=== PATIENT | female | born 1960 | race Caucasian/White ===

== ENCOUNTER 2017-10-05 19:29 | Emergency (ER) | payer MEDICARE, MEDICAID ==
--- NOTE | 2017-10-05 20:09 | ER Document Report ---
ED Extremity Problem, Lower - General Chief Complaint: Leg Swelling Stated Complaint: RIGHT KNEE PAIN Time Seen by Provider: 10/05/17 19:39 Notes: The patient is a 56-year-old female, past medical history CKD, bipolar, history of infected right knee prosthesis, presents with mild increased swelling of her right leg. She said that this occurred when she was in kidney failure last time. Patient had a washout of her right knee about 3 weeks ago at an outside hospital. She is receiving IV antibiotics through her PICC line at [facility]. Patient denies redness from the wound, increased knee pain, fevers, calf pain, chest pain, shortness of breath, nausea or vomiting. - Related Data Allergies/Adverse Reactions: Sulfa (Sulfonamide Antibiotics) Allergy (Verified 10/05/17 20:12) Past Medical History - General Information source: Patient - Social History Smoking Status: Unknown if Ever Smoked Family History: Reviewed & Not Pertinent Review of Systems - Review of Systems Notes: REVIEW OF SYSTEMS: CONSTITUTIONAL: -fevers, -chills EENT: -eye pain, -difficulty swallowing, -nasal congestion CARDIOVASCULAR: -chest pain, -syncope. RESPIRATORY: -cough, -SOB GASTROINTESTINAL: -abdominal pain, -nausea, -vomiting, -diarrhea GENITOURINARY: -dysuria, -hematuria MUSCULOSKELETAL: +right knee pain, -back pain, -neck pain SKIN: -rash or skin lesions. HEMATOLOGIC: -easy bruising or bleeding. LYMPHATIC: -swollen, enlarged glands. NEUROLOGICAL: -altered mental status or loss of consciousness, -headache, - neurologic symptoms PSYCHIATRIC: -anxiety, -depression. ALL OTHER SYSTEMS REVIEWED AND NEGATIVE. Physical Exam - Vital signs Vitals: Temp Pulse Resp BP Pulse Ox 98.4 F 84 18 105/56 L 95 10/05/17 19:57 10/05/17 19:57 10/05/17 19:57 10/05/17 19:57 10/05/17 19:57 - Notes Notes: PHYSICAL EXAMINATION: GENERAL: Well-appearing, well-nourished and in no acute distress. HEAD: Atraumatic, normocephalic. EYES: Pupils equal round and reactive to light, extraocular movements intact, sclera anicteric, conjunctiva are normal. ENT: nares patent, oropharynx clear without exudates. Moist mucous membranes. NECK: Normal range of motion, supple without lymphadenopathy LUNGS: Breath sounds clear to auscultation bilaterally and equal. No wheezes rales or rhonchi. HEART: Regular rate and rhythm without murmurs ABDOMEN: Soft, nontender, normoactive bowel sounds. No guarding, no rebound. No masses appreciated. EXTREMITIES: Well-healing right anterior knee surgical wound without erythema or discharge. Normal range of motion, no pitting or edema. No cyanosis. NEUROLOGICAL: Cranial nerves grossly intact. Normal speech, normal gait. Normal sensory and motor exams. PSYCH: Normal mood, normal affect. SKIN: Warm, Dry, normal turgor, no rashes or lesions noted. Course - Re-evaluation Re-evalutation: Patient's knee appears to be healing well and there are no signs of infection at this time. No redness, swelling, fevers and her white count improved from her admission based on outside hospital paperwork. She is continued to receive IV antibiotics through her PICC line at [facility]. Her kidney function is at baseline. No emergent process identified at this time. DVT is unlikely at this time and vascular ultrasound unable to be performed at this time of the night. She is already on Xarelto. She will follow-up with her primary care physician and surgeon for further evaluation and treatment. Given strict return precautions and she understands. - Vital Signs Vital signs: Temp Pulse Resp BP Pulse Ox 98.4 F 84 18 105/56 L 95 10/05/17 21:55 10/05/17 21:55 10/05/17 21:55 10/05/17 21:55 10/05/17 21:55 - Laboratory Result Diagrams: 10/05/17 20:00 10/05/17 20:00 Laboratory results interpreted by me: 10/05/17 10/05/17 20:00 20:00 WBC 10.7 H RBC 3.46 L Hgb 10.4 L Hct 30.8 L RDW 16.4 H BUN 37 H Creatinine 2.05 H Est GFR ( Amer) 30 L Est GFR (Non-Af Amer) 25 L Glucose 151 H AST 212 H ALT 114 H - Diagnostic Test Radiology reviewed: Image reviewed, Reports reviewed Radiology results interpreted by me: Right knee x-ray: NAD Discharge - Discharge Clinical Impression: Right leg pain Condition: Stable Disposition: HOME, SELF-CARE Additional Instructions: Your knee appears to be healing well. Continue the IV antibiotics as prescribed. Follow-up with your physicians for further evaluation and treatment. Referrals: TOMSA WORRELL MD [ACTIVE STAFF] - Follow up as needed
[2017-10-05 20:10] LABS: ABSOLUTE BASOPHILS # (AUTO) 0.2 10^3/uL (0.0-0.2); ABSOLUTE EOSINOPHILS # (AUTO) 0.5 10^3/uL (0.0-0.6); ABSOLUTE LYMPHOCYTES (AUTO) 2.3 10^3/uL (0.5-4.7); ABSOLUTE MONOCYTES (AUTO) 0.6 10^3/uL (0.1-1.4); ABSOLUTE NEUT (AUTO) 7.1 10^3/uL (1.7-8.2); BASOPHILS % (AUTO) 1.7 % (0-2); EOSINOPHILS % (AUTO) 5.1 % (0-6); HEMATOCRIT 30.8 % (36.0-47.0); HEMOGLOBIN 10.4 g/dL (12.0-15.5); LYMPHOCYTES % (AUTO) 21.3 % (13-45); MEAN CORPUSCULAR HEMOGLOBIN 29.9 pg (27.0-33.4); MEAN CORPUSCULAR HGB CONC 33.6 g/dL (32.0-36.0); MEAN CORPUSCULAR VOLUME 89 fl (80-97); MONOCYTES % (AUTO) 5.4 % (3-13); PLATELET COUNT 367 10^3/uL (150-450); RED BLOOD COUNT 3.46 10^6/uL (3.72-5.28); RED CELL DISTRIBUTION WIDTH 16.4 % (11.5-14.0); SEGMENTED NEUTROPHILS % (AUTO) 66.5 % (42-78); TOTAL CELLS COUNTED % (AUTO) 100 %; WHITE BLOOD COUNT 10.7 10^3/uL (4.0-10.5)
[2017-10-05 20:24] LABS: ALANINE AMINOTRANSFERASE 114 U/L (9-52); ALBUMIN 3.8 g/dL (3.5-5.0); ALKALINE PHOSPHATASE 76 U/L (38-126); ANION GAP 12 (5-19); ASPARTATE AMINO TRANSFERASE 212 U/L (14-36); BILIRUBIN,DIRECT 0.4 mg/dL (0.0-0.4); BILIRUBIN,TOTAL 0.4 mg/dL (0.2-1.3); BLOOD UREA NITROGEN 37 mg/dL (7-20); CALCIUM 9.5 mg/dL (8.4-10.2); CARBON DIOXIDE 24 mmol/L (22-30); CHLORIDE 105 mmol/L (98-107); GLUCOSE 151 mg/dL (75-110); POTASSIUM 3.9 mmol/L (3.6-5.0); SODIUM 140.7 mmol/L (137-145); TOTAL PROTEIN 6.7 g/dL (6.3-8.2)
--- NOTE | 2017-10-05 20:48 | RADIOLOGY REPORT (SQ) ---
EXAM DESCRIPTION: KNEE RIGHT 4 VIEWS COMPLETED DATE/TIME: 10/05/2017 8:12 pm REASON FOR STUDY: right knee swelling COMPARISON: None. NUMBER OF VIEWS: Four views. TECHNIQUE: AP, lateral, and both oblique radiographic images acquired of the right knee. LIMITATIONS: None. FINDINGS: MINERALIZATION: Normal. BONES: Intact knee arthroplasty. JOINT: No effusion. SOFT TISSUES: No soft tissue swelling. No radio-opaque foreign body. OTHER: No other significant finding. IMPRESSION: No acute findings. TECHNICAL DOCUMENTATION: JOB ID: [id number] [employer]- All Rights Reserved
[2017-10-06 00:29] VITALS: BP 111/67
== END 2017-10-06 00:28 | disposition home or self-care (01) ==
LOC: ER 19:29
DX: M79.604 Pain in right leg (principal); M79.89 Other specified soft tissue disorders; M25.561 Pain in right knee; N18.9 Chronic kidney disease, unspecified; F31.9 Bipolar disorder, unspecified; Z79.01 Long term (current) use of anticoagulants; Z98.890 Other specified postprocedural states
CPT/HCPCS: 36415; 80053; 85025; 99284

== ENCOUNTER 2018-11-19 08:14 | Day surgery (SDC) | payer MEDICARE, MEDICAID ==
[~2018-11-19 08:14] MED LIST: PROPOFOL INJ 200 MG/20 ML VIAL IV ONE
[2018-11-19] MEDS ORDERED: ALBUTEROL SULFATE 0.083% NEB 2.5 MG/3 ML AMPUL NEB ONE (08:59)
[2018-11-19 11:17] VITALS: BP 142/68
--- NOTE | 2018-11-19 12:27 | Operative Report ---
Operative Report DATE OF SURGERY: 11/19/18 Operative Report: The risks benefits and alternatives of the procedure explained to the patient in detail and informed consent is obtained.A GIF Olympus video scope was inserted into the patient's mouth and hypopharynx, the esophagus is identified intubated and insufflated ,the scope was then advanced through the esophagus stomach and duodenum, retroflexion maneuver is done, the esophagus stomach and first and second portions of the duodenum examined. PREOPERATIVE DIAGNOSIS: Dysphagia POSTOPERATIVE DIAGNOSIS: Esophagitis versus Lang's status post biopsy. Gastritis status post biopsy. Gastric erosions and ulcers noted. Duodenitis OPERATION: EGD with biopsy SURGEON: ROBERT MARLOW ANESTHESIA: LMAC TISSUE REMOVED OR ALTERED: As noted above. COMPLICATIONS: None. ESTIMATED BLOOD LOSS: None. INTRAOPERATIVE FINDINGS: As noted above. PROCEDURE: Patient tolerated the procedure well. No immediate postprocedure complications are noted. Patient discharged in good condition. Discharge date 11/19/2018. Discharge diet: Regular. Discharge activity: Regular. 2-3-week follow-up to discuss findings. Patient is instructed to call the office or proceed to the emergency room should there be any further questions. I will wait on the pathology.
--- NOTE | 2018-11-19 21:03 | EKG REPORT ---
SEVERITY:- ABNORMAL ECG - SINUS RHYTHM LOW VOLTAGE THROUGHOUT BORDERLINE R WAVE PROGRESSION, ANTERIOR LEADS NONSPECIFIC T ABNORMALITIES, ANT-LAT LEADS : Confirmed by: Brittney Moctezuma MD 19-Nov-2018 21:02:39
== END 2018-11-19 11:20 | disposition home or self-care (01) ==
LOC: OROUT 08:14
PROVIDERS: ATTEND Internal Medicine Gastroenterology
DX: K29.50 Unspecified chronic gastritis without bleeding (principal); K21.0 Gastro-esophageal reflux disease with esophagitis; K29.80 Duodenitis without bleeding; J44.9 Chronic obstructive pulmonary disease, unspecified; I10 Essential (primary) hypertension; F17.210 Nicotine dependence, cigarettes, uncomplicated; E66.9 Obesity, unspecified; G47.33 Obstructive sleep apnea (adult) (pediatric); E03.9 Hypothyroidism, unspecified; E78.5 Hyperlipidemia, unspecified; R06.02 Shortness of breath; N32.81 Overactive bladder; Z68.43 Body mass index [BMI] 50.0-59.9, adult; Z79.899 Other long term (current) drug therapy; Z88.2 Allergy status to sulfonamides
CPT/HCPCS: 43239; 88342 ×2; 88305 ×2; 93005; 93010; J2704; A9270; 731

== ENCOUNTER → 2018-12-15 | Outpatient (CLI) | payer MEDICAID, MEDICARE ==
[2018-12-15 14:53] LABS: HEMATOCRIT 37.3 % (36.0-47.0); HEMOGLOBIN 12.3 g/dL (12.0-15.5); MEAN CORPUSCULAR HEMOGLOBIN 32.1 pg (27.0-33.4); MEAN CORPUSCULAR HGB CONC 32.9 g/dL (32.0-36.0); MEAN CORPUSCULAR VOLUME 97 fl (80-97); PLATELET COUNT 382 10^3/uL (150-450); RED BLOOD COUNT 3.83 10^6/uL (3.72-5.28); RED CELL DISTRIBUTION WIDTH 15.9 % (11.5-14.0)
[2018-12-15 15:17] LABS: ABSOLUTE LYMPHOCYTES# (MANUAL) 2.6 10^3/uL (0.5-4.7); ABSOLUTE MONOCYTES # (MANUAL) 0.5 10^3/uL (0.1-1.4); ALANINE AMINOTRANSFERASE 41 U/L (9-52); ALBUMIN 3.2 g/dL (3.5-5.0); ALKALINE PHOSPHATASE 86 U/L (38-126); ANION GAP 6 (5-19); ASPARTATE AMINO TRANSFERASE 41 U/L (14-36); BASOPHILS % (MANUAL) 2 % (0-2); BILIRUBIN,DIRECT 0.3 mg/dL (0.0-0.4); BILIRUBIN,TOTAL 0.3 mg/dL (0.2-1.3); BLOOD UREA NITROGEN 20 mg/dL (7-20); C-REACTIVE PROTEIN 23.1 mg/L (<10.0); CALCIUM 9.6 mg/dL (8.4-10.2); CARBON DIOXIDE 24 mmol/L (22-30); CHLORIDE 114 mmol/L (98-107); EOSINOPHILS % (MANUAL) 5 % (0-6); GLUCOSE 112 mg/dL (75-110); LYMPHOCYTES % (MANUAL) 18 % (13-45); MONOCYTES % (MANUAL) 4 % (3-13); PLATELET COMMENT ADEQUATE; RBC MORPHOLOGY COMMENT MN; SEGMENTED NEUTROPHILS % (MAN) 69 % (42-78); SODIUM 143.9 mmol/L (137-145); TOTAL CELLS COUNTED 100; TOTAL PROTEIN 5.7 g/dL (6.3-8.2)
[2018-12-15 15:32] LABS: ERYTHROCYTE SEDIMENTATION RATE 46 mm/hr (0-30)
--- NOTE | 2018-12-16 08:12 | XCELERA REPORT ---
[address] [address] Lower Extremity Venous Evaluation Procedure: A bilateral duplex scan of the lower extremity veins was performed. The evaluation included responses to compression and other maneuvers with patient in the supine and standing positions to assess venous insufficiency. Right Sided Venous Evaluation Deep venous system evaluation shows patent veins with no obstruction or significant reflux identified. Saphena Femoral junction: no reflux. Femoral vein reflux: no reflux. Greater Saphenous vein, Proximal thigh: reflux: no reflux. Greater Saphenous vein, Distal thigh: reflux: no reflux. Greater Saphenous vein, Proximal below knee: reflux: no reflux. Distal not imaged due to bandaging. No significant Perforators identified. Left Sided Venous Evaluation Deep venous system evaluatiion shows patent veins with no obstruction or significant reflux identified. Sapheno Femoral junction: no reflux. Femoral vein reflux: no reflux. Greater Saphenous vein, Proximal thigh: reflux: no reflux. Greater Saphenous vein, Distal thigh: reflux: no reflux. Greater Saphenous vein, Proximal below knee: reflux: no reflux. No significant Perforators identified. Interpretation Summary No duplex evidence of DVT or obstruction in the bilateral lower extremities. No deep or superficial reflux noted. Distal right Greater Saphenous vein not imaged due to bandaging. Name: CHANELLE ALFORD Age: 58 yrs Gender: Female : 1960 Patient Status: Outpatient Patient Location: Study Date: 12/15/2018 01:49 PM Reason For Study: RT CALF ULCER Ordering Physician: EJ PROCTOR Performed By: Boone Nolasco : EJ PROCTOR > Everett Kaiser
--- NOTE | 2018-12-17 16:04 | XCELERA REPORT ---
[address] [address] Lower Extremity Arterial Evaluation Name: CHANELLE ALFORD Age: 58 yrs Gender: Female : 1960 Patient Status: Outpatient Patient Location: SP Study Date: 12/15/2018 01:25 PM Procedure: A color flow and duplex scan of the lower extremity arteries was performed bilaterally with velocity and waveform anaylsis. Reason For Study: RT CALF ULCER Ordering Physician: EJ PROCTOR Performed By: Boone Nolasco Measurements and Calculations Right Left YARN HANDLER PSV 167.9 193.5 cm/sec Prox PFA PSV 105.6 113.1 cm/sec Prox SFA PSV 186.0 198.4 cm/sec Mid SFA PSV -152.8 -186.0cm/sec Dist SFA PSV -170.5 -191.2cm/sec Prox Pop A PSV 155.4 203.3 cm/sec Dist JOSE PSV 132.0 119.4 cm/sec Dist RELIGIOUS LEADER PSV 126.5 164.2 cm/sec Justin Pedis PSV -104.6 108.7 cm/sec Right Side Arterial Evaluation Normal velocity and triphasic waveforms noted from the Common Femoral artery to the Popliteal artery. Biphasic with normal velocity in the infrageniculate vessels. Ankle Brachial index not obtained due to edema.. Left Side Arterial Evaluation Normal velocity and triphasic waveforms noted from the Common Femoral artery to the Popliteal artery. Biphasic with normal velocity in the infrageniculate vessels. Ankle Brachial index not obtained due to edema.. Interpretation Summary Mild hemodynamically significant lesions in the bilateral lower extremities, on duplex imaging, at rest. Findings are indicative of mild disease effects at the infrageniculate level. : EJ PROCTOR > Everett Kaiser
== END ==
LOC: SP 12:29
PROVIDERS: ATTEND Nurse Practitioner Family
DX: L97.212 Non-pressure chronic ulcer of right calf with fat layer exposed (principal)
CPT/HCPCS: 36415; 80053; 85025; 85652; 86140; 93925; 93970

== ENCOUNTER 2018-12-22 16:21 | Emergency (ER) | payer MEDICARE, MEDICAID ==
--- NOTE | 2018-12-22 20:07 | ER Document Report ---
ED Medical Screen (RME) - General Chief Complaint: Abdominal distension Stated Complaint: STOMACH PAIN Time Seen by Provider: 12/22/18 19:46 Mode of Arrival: Wheelchair Information source: Patient Notes: Patient is a 58-year-old female who presents the emergency department complaints of abdominal distention. Patient reports on Thursday she had a colonoscopy done here by Dr. Montesinos. She states that this afternoon she started having severe abdominal distention. She also reports nausea without vomiting or diarrhea. Patient denies fever. Exam: Very large abdomen with large pannus, unable to discern if she has abdominal swelling or if this is her normal. Patient alert, oriented, talking in circles, patient unable to focus on main reason why she is here. Multiple attempts to redirect patient. I have greeted and performed a rapid initial assessment of this patient. A comprehensive ED assessment and evaluation of the patient, analysis of test results and completion of the medical decision making process will be conducted by additional ED providers. Dictation of this chart was performed using voice recognition software; therefore, there may be some unintended grammatical errors. TRAVEL OUTSIDE OF THE [place] IN LAST 30 DAYS: No - Related Data Allergies/Adverse Reactions: iron Allergy (Verified 12/13/18 14:57) Sulfa (Sulfonamide Antibiotics) Allergy (Verified 12/13/18 14:57) fleas Allergy (Uncoded 12/22/18 16:38) Past Medical History - Past Medical History Cardiac Medical History: Reports: Hx Coronary Artery Disease Denies: Hx Heart Attack, Hx Hypertension Pulmonary Medical History: Reports: Hx COPD - PT UNSURE Denies: Hx Asthma, Hx Bronchitis, Hx Pneumonia Neurological Medical History: Denies: Hx Cerebrovascular Accident, Hx Seizures Renal/ Medical History: Denies: Hx Peritoneal Dialysis Musculoskeltal Medical History: Reports Hx Arthritis - "GENERALIZED" - Immunizations Hx Diphtheria, Pertussis, Tetanus Vaccination: Yes History of Influenza Vaccine for 05/2017 - 10/2017 Season: Yes Influenza Administration Date for 05/2017 - 10/2017 Season: 06/24/18 Physical Exam - Vital signs Vitals: Temp Pulse Resp BP Pulse Ox 98.0 F 86 20 144/54 H 93 12/22/18 16:42 12/22/18 16:42 12/22/18 16:42 12/22/18 16:42 12/22/18 16:42 Course - Vital Signs Vital signs: Temp Pulse Resp BP Pulse Ox 98.0 F 86 20 144/54 H 93 12/22/18 16:42 12/22/18 16:42 12/22/18 16:42 12/22/18 16:42 12/22/18 16:42
[2018-12-22 21:18] LABS: APPEARANCE,URINE SLIGHTLY-CLOUDY; BILIRUBIN,URINE NEGATIVE (NEGATIVE); COLOR,URINE YELLOW; GLUCOSE, URINE NEGATIVE (NEGATIVE); KETONES,URINE NEGATIVE (NEGATIVE); LEUKOCYTE ESTERASE,URINE SMALL (NEGATIVE); NITRITE,URINE POSITIVE (NEGATIVE); PROTEIN,URINE 100 mg/dL (NEGATIVE); URINE SPECIFIC GRAVITY 1.014; UROBILINOGEN,URINE NEGATIVE mg/dL (<2.0)
[2018-12-22 22:56] LABS: ABSOLUTE BASOPHILS # (AUTO) 0.1 10^3/uL (0.0-0.2); ABSOLUTE EOSINOPHILS # (AUTO) 0.3 10^3/uL (0.0-0.6); ABSOLUTE LYMPHOCYTES (AUTO) 2.6 10^3/uL (0.5-4.7); ABSOLUTE MONOCYTES (AUTO) 0.8 10^3/uL (0.1-1.4); ABSOLUTE NEUT (AUTO) 10.1 10^3/uL (1.7-8.2); BASOPHILS % (AUTO) 0.9 % (0-2); EOSINOPHILS % (AUTO) 2.5 % (0-6); HEMATOCRIT 42.6 % (36.0-47.0); HEMOGLOBIN 13.8 g/dL (12.0-15.5); LYMPHOCYTES % (AUTO) 18.8 % (13-45); MEAN CORPUSCULAR HEMOGLOBIN 31.7 pg (27.0-33.4); MEAN CORPUSCULAR HGB CONC 32.5 g/dL (32.0-36.0); MEAN CORPUSCULAR VOLUME 98 fl (80-97); MONOCYTES % (AUTO) 5.5 % (3-13); PLATELET COUNT 444 10^3/uL (150-450); RED BLOOD COUNT 4.36 10^6/uL (3.72-5.28); RED CELL DISTRIBUTION WIDTH 15.5 % (11.5-14.0); SEGMENTED NEUTROPHILS % (AUTO) 72.3 % (42-78); TOTAL CELLS COUNTED % (AUTO) 100 %
[2018-12-22 23:09] LABS: INTERNATIONAL RATION (INR) 1.03
[2018-12-22 23:10] LABS: PARTIAL THROMBOPLASTIN TIME 29.6 SEC (23.5-35.8)
[2018-12-22 23:19] LABS: ALANINE AMINOTRANSFERASE 49 U/L (9-52); ALBUMIN 3.5 g/dL (3.5-5.0); ALKALINE PHOSPHATASE 101 U/L (38-126); ANION GAP 8 (5-19); ASPARTATE AMINO TRANSFERASE 39 U/L (14-36); BILIRUBIN,DIRECT 0.4 mg/dL (0.0-0.4); BILIRUBIN,TOTAL 0.4 mg/dL (0.2-1.3); BLOOD UREA NITROGEN 15 mg/dL (7-20); CALCIUM 9.4 mg/dL (8.4-10.2); CARBON DIOXIDE 22 mmol/L (22-30); CHLORIDE 112 mmol/L (98-107); GLUCOSE 89 mg/dL (75-110); POTASSIUM 4.8 mmol/L (3.6-5.0); SODIUM 141.7 mmol/L (137-145); TOTAL PROTEIN 6.4 g/dL (6.3-8.2)
--- NOTE | 2018-12-23 00:19 | RADIOLOGY REPORT (SQ) ---
EXAM DESCRIPTION: RadLex: CT ABDOMEN PELVIS WITH IV CONTRAST CLINICAL HISTORY: 58 years Female; recent colonoscopy, abd distension TECHNIQUE: CT of the abdomen and pelvis using intravenous 100 mL Omnipaque [address] scans at this facility use dose modulation, iterative reconstruction, and/or weight based dosing when appropriate to reduce radiation dose to as low as reasonably achievable. COMPARISON: None. FINDINGS: Abdomen: Liver: Enlarged, 20 cm long. Diffuse steatosis. No ductal distention. Gallbladder: Large partially calcified 2.6 cm gallstone. No pericholecystic edema. Pancreas:Within normal limits Spleen:Within normal limits Right kidney:No hydronephrosis. No focal lesion. Left kidney:No hydronephrosis. No focal lesion. Adrenal glands:Within normal limits Vascular structures:Within normal limits Pelvis: Small bowel:No significant distention. Appendix:Within normal limits Colon: Multiple diverticula, mostly along the sigmoid and descending colon. No acute pericolonic edema or colonic distention. No free intraperitoneal fluid or air. No pelvic mass or adenopathy. IMPRESSION: 1. No acute findings. No bowel obstruction or perforation. 2. Colonic diverticulosis but no CT evidence for acute diverticulitis 3. Cholelithiasis, with a large 2.[address] evidence for acute cholecystitis. 4. Hepatomegaly with diffuse hepatic steatosis.
--- NOTE | 2018-12-23 01:31 | ER Document Report ---
ED General - General Chief Complaint: Abdominal distension Stated Complaint: STOMACH PAIN Time Seen by Provider: 12/22/18 19:46 Mode of Arrival: Wheelchair TRAVEL OUTSIDE OF THE [place] IN LAST 30 DAYS: No - HPI Notes: Patient is a 58-year-old female who presents to the emergency department for evaluation. She states her abdomen is swelled. She had a colonoscopy by Dr. Liang last Thursday. She states today she had an increase in pain and noticed that the right side of her abdomen seemed distended. She is still having bowel movements. She reports mild nausea without vomiting. No fevers. No urinary symptoms. - Related Data Allergies/Adverse Reactions: iron Allergy (Verified 12/13/18 14:57) Sulfa (Sulfonamide Antibiotics) Allergy (Verified 12/13/18 14:57) fleas Allergy (Uncoded 12/22/18 16:38) Past Medical History - General Information source: Patient - Social History Smoking Status: Never Smoker Family History: Reviewed & Not Pertinent Patient has suicidal ideation: No Patient has homicidal ideation: No - Past Medical History Cardiac Medical History: Reports: Hx Coronary Artery Disease Denies: Hx Heart Attack, Hx Hypertension Pulmonary Medical History: Reports: Hx COPD - PT UNSURE Denies: Hx Asthma, Hx Bronchitis, Hx Pneumonia Neurological Medical History: Denies: Hx Cerebrovascular Accident, Hx Seizures Renal/ Medical History: Denies: Hx Peritoneal Dialysis Musculoskeletal Medical History: Reports Hx Arthritis - "GENERALIZED" - Immunizations Hx Diphtheria, Pertussis, Tetanus Vaccination: Yes Hx Pneumococcal Vaccination: 08/24/16 Review of Systems - Review of Systems Constitutional: No symptoms reported EENT: No symptoms reported Cardiovascular: No symptoms reported Respiratory: No symptoms reported Gastrointestinal: See HPI Genitourinary: No symptoms reported Female Genitourinary: No symptoms reported Musculoskeletal: No symptoms reported Skin: No symptoms reported Neurological/Psychological: No symptoms reported Physical Exam - Vital signs Vitals: Temp Pulse Resp BP Pulse Ox 98.0 F 86 20 144/54 H 93 12/22/18 16:42 12/22/18 16:42 12/22/18 16:42 12/22/18 16:42 12/22/18 16:42 - Notes Notes: Morbidly obese 58-year-old female, appears stated age in no acute distress. Vital signs reviewed, please refer to chart. Patient is normocephalic, atraumatic. Pupils equal round, reactive to light. Neck is supple without meningismus. Heart is regular rate and rhythm. Lungs are clear to auscultation bilaterally. Abdomen is large, round, nontender with normoactive bowel sounds. Extremities without cyanosis, clubbing. Peripheral pulses are equal. Skin is warm and dry. Patient is awake, alert, neurological exam is nonfocal. Course - Re-evaluation Re-evalutation: 12/23/18 01:31 Patient presents to the emergency department for evaluation. She states her abdomen is distended. She is having bowel movements. Her laboratory investigations and imaging failed to reveal any acute process. Patient's serial abdominal exams are benign. She is to follow-up with Dr. Montesinos and primary care. She is to return to the emergency department with worsening or new concerning this. - Vital Signs Vital signs: Temp Pulse Resp BP Pulse Ox 98.0 F 86 20 144/54 H 93 12/22/18 16:42 12/22/18 16:42 12/22/18 16:42 12/22/18 16:42 12/22/18 16:42 - Laboratory Result Diagrams: 12/22/18 22:30 12/22/18 22:30 Laboratory results interpreted by me: 12/22/18 12/22/18 12/22/18 20:39 22:30 22:30 WBC 14.0 H MCV 98 H RDW 15.5 H Absolute Neutrophils 10.1 H Chloride 112 H Creatinine 1.31 H Est GFR ( Amer) 51 L Est GFR (Non-Af Amer) 42 L AST 39 H Urine Protein 100 H Urine Nitrite POSITIVE H Ur Leukocyte Esterase SMALL H Urine Ascorbic Acid 20 H - Diagnostic Test Radiology reviewed: Reports reviewed Discharge - Discharge Clinical Impression: Abdominal distention, Nausea Condition: Stable Disposition: HOME, SELF-CARE Additional Instructions: No clear reason was found for your abdominal distention today. Increase liquids, increase physical activity. Follow-up with your primary care provider as well as Dr. Jaime. Return to the emergency department with worsening or new concerning symptoms.
[2018-12-23 01:47] VITALS: BP 148/62
== END 2018-12-23 01:52 | disposition home or self-care (01) ==
LOC: ER 16:21
DX: R14.0 Abdominal distension (gaseous) (principal); R11.0 Nausea; I25.10 Atherosclerotic heart disease of native coronary artery without angina pectoris; J44.9 Chronic obstructive pulmonary disease, unspecified
CPT/HCPCS: 36415; 74177; 80053; 81001; 85025; 85610; 85730; 99284

== ENCOUNTER 2019-05-03 12:52 | Emergency (ER) | payer MEDICARE, MEDICAID ==
--- NOTE | 2019-05-03 13:28 | ER Document Report ---
ED Medical Screen (RME) - General Chief Complaint: Skin Sore(s) Stated Complaint: SKIN ISSUE Time Seen by Provider: 05/03/19 13:21 Primary Care Provider: CHELSEA PROCTOR PA-C [Primary Care Provider] - Follow up as needed Mode of Arrival: Wheelchair Information source: Patient Notes: Patient is a 58-year-old female who reports that she has borderline diabetes. She reports that she has multiple wounds to her right leg in various stages of healing. She states that the wound to her right posterior/lateral calf has increased pain and burning from it. She denies any fever or chills. She states that she is to see wound care but has not seen them anymore. Patient reports she thinks a bug crawled into her wound. Exam: Swelling noted to bilateral lower extremities, multiple sores noted scattered throughout, 2 large areas of concern to right lower extremity. I have greeted and performed a rapid initial assessment of this patient. A comprehensive ED assessment and evaluation of the patient, analysis of test results and completion of the medical decision making process will be conducted by additional ED providers. I have specifically instructed the patient or family members with the patient to immediately return to any nursing staff should anything change in the patient's condition or with their chief complaint. This medical record was dictated with voice recognizing software. There may be grammatical, syntax errors that are unintended. TRAVEL OUTSIDE OF THE [place] IN LAST 30 DAYS: No - Related Data Allergies/Adverse Reactions: iron Allergy (Verified 05/03/19 12:58) Sulfa (Sulfonamide Antibiotics) Allergy (Verified 05/03/19 12:58) fleas Allergy (Uncoded 05/03/19 12:58) Past Medical History - Past Medical History Cardiac Medical History: Reports: Hx Coronary Artery Disease Denies: Hx Heart Attack, Hx Hypertension Pulmonary Medical History: Reports: Hx COPD - PT UNSURE Denies: Hx Asthma, Hx Bronchitis, Hx Pneumonia Neurological Medical History: Denies: Hx Cerebrovascular Accident, Hx Seizures Renal/ Medical History: Denies: Hx Peritoneal Dialysis Musculoskeltal Medical History: Reports Hx Arthritis - "GENERALIZED" - Immunizations Hx Diphtheria, Pertussis, Tetanus Vaccination: Yes History of Influenza Vaccine for 05/2017 - 10/2017 Season: Yes Influenza Administration Date for 05/2017 - 10/2017 Season: 06/24/18 Physical Exam - Vital signs Vitals: Temp Pulse Resp BP Pulse Ox 99.3 F 89 16 118/65 92 05/03/19 12:59 05/03/19 12:59 05/03/19 12:59 05/03/19 12:59 05/03/19 12:59 Course - Vital Signs Vital signs: Temp Pulse Resp BP Pulse Ox 99.3 F 89 16 118/65 92 05/03/19 12:59 05/03/19 12:59 05/03/19 12:59 05/03/19 12:59 05/03/19 12:59 Doctor's Discharge - Discharge Referrals: CHELSEA PROCTOR, PAOrtizC [Primary Care Provider] - Follow up as needed
--- NOTE | 2019-05-03 14:13 | RADIOLOGY REPORT (SQ) ---
EXAM DESCRIPTION: TIBIA FIBULA RIGHT COMPLETED DATE/TIME: 05/03/2019 2:01 pm REASON FOR STUDY: pain, swelling, ulcerations, eval for osteo COMPARISON: None. NUMBER OF VIEWS: Two views. TECHNIQUE: Two radiographic images acquired of the right tibia and fibula to include the knee and an kle in at least one projection. LIMITATIONS: None. FINDINGS: MINERALIZATION: Normal. BONES: No acute fracture or dislocation. No worrisome bone lesions. Prior total knee replacement. SOFT TISSUES: There is soft tissue edema. OTHER: No other significant finding. IMPRESSION: Soft tissue edema. No acute fracture. TECHNICAL DOCUMENTATION: JOB ID: [id number] [employer]- All Rights Reserved Reading location - IP/workstation name: [email or web address]
--- NOTE | 2019-05-03 14:27 | ER Document Report ---
ED Skin Rash/Insect Bite/Abscs - General Chief Complaint: Skin Sore(s) Stated Complaint: SKIN ISSUE Time Seen by Provider: 05/03/19 13:21 Primary Care Provider: CHELSEA PROCTOR PA-C [NO LOCAL MD] - Follow up as needed Mode of Arrival: Wheelchair Notes: 58-year-old female with history of MRSA, "prediabetes, thyroid, CPAP" who is currently taking doxycycline, venous stasis of her bilateral lower extremities presents to the emergency department with chief complaint of 2 sores on her right lower leg. She states that she has multiple wounds that are in various stages of healing the 2 sores on her right lower leg have increased in pain and she complains of burning. She denies any fevers or chills, denies any nausea or vomiting. No acute shortness of breath or chest pain. She was seeing wound care but has chosen not to see them anymore. Patient has a history cat that she sheltered and thinks the cat had fleas and believes that a fully embedded into 1 of her wounds. No other complaints. TRAVEL OUTSIDE OF THE [place] IN LAST 30 DAYS: No - Related Data Allergies/Adverse Reactions: iron Allergy (Verified 05/03/19 12:58) Sulfa (Sulfonamide Antibiotics) Allergy (Verified 05/03/19 12:58) fleas Allergy (Uncoded 05/03/19 12:58) Past Medical History - General Information source: Patient - Social History Smoking Status: Never Smoker Chew tobacco use (# tins/day): No Frequency of alcohol use: None Drug Abuse: None Family History: Reviewed & Not Pertinent Patient has suicidal ideation: No Patient has homicidal ideation: No - Past Medical History Cardiac Medical History: Reports: Hx Coronary Artery Disease Denies: Hx Heart Attack, Hx Hypertension Pulmonary Medical History: Reports: Hx COPD - PT UNSURE Denies: Hx Asthma, Hx Bronchitis, Hx Pneumonia Neurological Medical History: Denies: Hx Cerebrovascular Accident, Hx Seizures Renal/ Medical History: Denies: Hx Peritoneal Dialysis Musculoskeletal Medical History: Reports Hx Arthritis - "GENERALIZED" - Immunizations Hx Diphtheria, Pertussis, Tetanus Vaccination: Yes Hx Pneumococcal Vaccination: 08/24/16 Review of Systems - Review of Systems Constitutional: See HPI EENT: No symptoms reported Cardiovascular: See HPI Respiratory: See HPI Gastrointestinal: No symptoms reported Genitourinary: No symptoms reported Female Genitourinary: No symptoms reported Musculoskeletal: No symptoms reported Skin: See HPI Hematologic/Lymphatic: No symptoms reported Neurological/Psychological: No symptoms reported Physical Exam - Vital signs Vitals: Temp Pulse Resp BP Pulse Ox 99.3 F 89 16 118/65 92 05/03/19 12:59 05/03/19 12:59 05/03/19 12:59 05/03/19 12:59 05/03/19 12:59 - Notes Notes: PHYSICAL EXAMINATION: Reviewed vital signs and charting by RN GENERAL: Alert, interacts well. No acute distress. HEAD: Normocephalic, atraumatic. EYES: Pupils equal and round. Extraocular movements intact. ENT: Oral mucosa moist, tongue midline. NECK: Full range of motion. Trachea midline. LUNGS: Clear to auscultation bilaterally, no wheezes, rales, or rhonchi. No respiratory distress. HEART: Regular rate and rhythm. No murmur EXTREMITIES: Moves all 4 extremities spontaneously. Bilateral lower extremity nonpitting edema, bilateral venous stasis up to the level of her mid sinclair PSYCH: Normal affect, normal mood. SKIN: Warm, dry, large ulcer on her medial right calf and another small ulcerated lesion on her lateral calf of the right leg Course - Re-evaluation Re-evalutation: 05/03/19 14:29 Patient is overall well-appearing and nontoxic, afebrile. Left tibia x-ray showed no obvious osteomyelitis and showed soft tissue swelling. Lab work is still pending. Overall plan is to refer patient back to the advanced wound care clinic. - Vital Signs Vital signs: Temp Pulse Resp BP Pulse Ox 99.3 F 89 16 118/65 92 05/03/19 12:59 05/03/19 12:59 05/03/19 12:59 05/03/19 12:59 05/03/19 12:59 - Laboratory Result Diagrams: 05/03/19 14:27 05/03/19 14:27 Laboratory results interpreted by me: 05/03/19 05/03/19 14:27 14:27 WBC 14.0 H RDW 16.1 H Absolute Neuts (auto) 10.3 H Chloride 108 H BUN 22 H Creatinine 1.43 H Est GFR ( Amer) 46 L Est GFR (MDRD) Non-Af 38 L Glucose 128 H AST 42 H Discharge - Discharge Clinical Impression: Skin ulcer Qualifiers: Non-pressure ulcer stage: limited to breakdown of skin Qualified Code(s): L98.491 - Non-pressure chronic ulcer of skin of other sites limited to breakdown of skin Condition: Good Disposition: HOME, SELF-CARE Additional Instructions: You were seen in the emergency department this afternoon for 2 wounds on your right lower leg. There was no evidence of systemic infection and your x-ray did not show evidence of any bone infection. This is all reassuring and you need to return back to the wound care clinic to continue with dressing changes. Please return to the emergency department if you develop fevers, worsening redness around the site, purulent discharge coming from the wounds, you have severe pain with passive movement of your leg or ankle, or you have any other concerning symptoms. Referrals: CHELSEA PROCTOR PA-C [NO LOCAL MD] - Follow up as needed EROS BHAGAT MD [ACTIVE STAFF] - Follow up tomorrow
[2019-05-03 14:42] LABS: ABSOLUTE BASOPHILS # (AUTO) 0.2 10^3/uL (0.0-0.2); ABSOLUTE EOSINOPHILS # (AUTO) 0.4 10^3/uL (0.0-0.6); ABSOLUTE LYMPHOCYTES (AUTO) 2.5 10^3/uL (0.5-4.7); ABSOLUTE MONOCYTES (AUTO) 0.6 10^3/uL (0.1-1.4); ABSOLUTE NEUT (AUTO) 10.3 10^3/uL (1.7-8.2); BASOPHILS % (AUTO) 1.2 % (0-2); EOSINOPHILS % (AUTO) 2.9 % (0-6); HEMATOCRIT 42.3 % (36.0-47.0); HEMOGLOBIN 13.9 g/dL (12.0-15.5); LYMPHOCYTES % (AUTO) 17.8 % (13-45); MEAN CORPUSCULAR HGB CONC 32.9 g/dL (32.0-36.0); MEAN CORPUSCULAR VOLUME 94 fl (80-97); MONOCYTES % (AUTO) 4.6 % (3-13); PLATELET COUNT 353 10^3/uL (150-450); RED BLOOD COUNT 4.49 10^6/uL (3.72-5.28); RED CELL DISTRIBUTION WIDTH 16.1 % (11.5-14.0); SEGMENTED NEUTROPHILS % (AUTO) 73.5 % (42-78); TOTAL CELLS COUNTED % (AUTO) 100 %
[2019-05-03 14:57] LABS: ALKALINE PHOSPHATASE 83 U/L (38-126); ANION GAP 12 (5-19); ASPARTATE AMINO TRANSFERASE 42 U/L (14-36); BILIRUBIN,DIRECT 0.3 mg/dL (0.0-0.4); BILIRUBIN,TOTAL 0.6 mg/dL (0.2-1.3); BLOOD UREA NITROGEN 22 mg/dL (7-20); CALCIUM 9.7 mg/dL (8.4-10.2); CARBON DIOXIDE 23 mmol/L (22-30); CHLORIDE 108 mmol/L (98-107); GLUCOSE 128 mg/dL (75-110); POTASSIUM 3.9 mmol/L (3.6-5.0); TOTAL PROTEIN 6.6 g/dL (6.3-8.2)
[2019-05-03 16:28] VITALS: BP 131/67
== END 2019-05-03 16:28 | disposition home or self-care (01) ==
LOC: ER 12:52
DX: L97.211 Non-pressure chronic ulcer of right calf limited to breakdown of skin (principal); I87.8 Other specified disorders of veins; R60.0 Localized edema; I25.10 Atherosclerotic heart disease of native coronary artery without angina pectoris; Z86.14 Personal history of Methicillin resistant Staphylococcus aureus infection; Z88.8 Allergy status to other drugs, medicaments and biological substances; Z88.2 Allergy status to sulfonamides; Z91.038 Other insect allergy status
CPT/HCPCS: 36415; 80053; 85025; 87070; 87077; 87205; 99283

== ENCOUNTER → 2020-02-13 | Outpatient (CLI) | payer MEDICARE, MEDICAID ==
[2020-02-13 09:40] LABS: ABSOLUTE BASOPHILS # (AUTO) 0.1 10^3/uL (0.0-0.2); ABSOLUTE EOSINOPHILS # (AUTO) 0.5 10^3/uL (0.0-0.6); ABSOLUTE LYMPHOCYTES (AUTO) 2.6 10^3/uL (0.5-4.7); ABSOLUTE MONOCYTES (AUTO) 0.7 10^3/uL (0.1-1.4); ABSOLUTE NEUT (AUTO) 8.1 10^3/uL (1.7-8.2); BASOPHILS % (AUTO) 0.8 % (0-2); HEMATOCRIT 42.5 % (36.0-47.0); LYMPHOCYTES % (AUTO) 21.8 % (13-45); MEAN CORPUSCULAR HEMOGLOBIN 31.5 pg (27.0-33.4); MEAN CORPUSCULAR HGB CONC 32.9 g/dL (32.0-36.0); MEAN CORPUSCULAR VOLUME 96 fl (80-97); MONOCYTES % (AUTO) 6.2 % (3-13); PLATELET COUNT 273 10^3/uL (150-450); RED BLOOD COUNT 4.44 10^6/uL (3.72-5.28); RED CELL DISTRIBUTION WIDTH 14.4 % (11.5-14.0); SEGMENTED NEUTROPHILS % (AUTO) 67.2 % (42-78); TOTAL CELLS COUNTED % (AUTO) 100 %
== END ==
LOC: OD 09:09
PROVIDERS: ATTEND Nurse Practitioner Psychiatric/Mental Health
DX: F31.9 Bipolar disorder, unspecified (principal)
CPT/HCPCS: 36415; 82140; 84450; 84460; 85025

== ENCOUNTER → 2020-02-13 | Outpatient (CLI) | payer MEDICAID, MEDICARE ==
--- NOTE | 2020-02-14 09:03 | RADIOLOGY REPORT (SQ) ---
EXAM DESCRIPTION: ARTERIAL LOWER EXTREM BILAT IMAGES COMPLETED DATE/TIME: 02/13/2020 4:58 pm REASON FOR STUDY: RT CALF ULCER L97.212 NON-PRESSURE CHRONIC ULCER OF RIGHT CALF W FAT LAYER COMPARISON: None. TECHNIQUE: Dynamic and static mccabe scale and color images acquired of the lower extremity arteries. Additional selected spectral images recorded. LIMITATIONS: None. FINDINGS: RIGHT LEG: There are normal triphasic spectral waveforms in the common femoral artery, proximal profunda femoris , superficial femoral artery and popliteal without evidence of a focal stenosis. The PSVs in the ves sels are as follow: LAMINATION MACHINE OPERATOR: 170 cm/s. Profunda Femoris: 100 cm/s. Femoral: 150-190 cm/s. The popliteal artery is patent and it demonstrates normal triphasic waveforms with a PSV of 160 cm/s. Evaluation of the distal posterior tibial artery is limited due to overlying bandage. The mid post erior tibial, anterior tibial and dorsalis pedis arteries are patent with biphasic spectral waveforms . The PSVs in the vessels are as follow: Mid FLORIST SUPPLIES SALESPERSON: 130 cm/s. JOSE: 130 cm/s. DP: 100 cm/s. LEFT LEG: There are normal triphasic spectral waveforms in the common femoral artery, proximal profunda femoris , superficial femoral artery and popliteal without evidence of a focal stenosis. The PSVs in the ves sels are as follow: LAMINATION MACHINE OPERATOR: 190 cm/s. Profunda Femoris: 110 cm/s. Femoral: 190-200 cm/s. The popliteal artery is patent and it demonstrates normal triphasic waveforms with a PSV of 200 cm/s. The posterior tibial, anterior tibial and dorsalis pedis arteries are patent with biphasic spectral waveforms. The PSVs in the vessels are as follow: FLORIST SUPPLIES SALESPERSON: 160 cm/s. JOSE: 120 cm/s. DP: 100 cm/s. There is increased increased subcutaneous edema bilaterally. IMPRESSION: NO OCCLUSION OR HEMODYNAMICALLY SIGNIFICANT STENOSIS. INCREASED SUBCUTANEOUS EDEMA. TECHNICAL DOCUMENTATION: [employer]- All Rights Reserved Reading location - IP/workstation name: [email or web address]
== END ==
LOC: SP 09:45
PROVIDERS: ATTEND Nurse Practitioner Family
DX: L97.212 Non-pressure chronic ulcer of right calf with fat layer exposed (principal)
CPT/HCPCS: 93922; 93925